=== PATIENT | female | born 2000 | race Caucasian/White ===

== ENCOUNTER 2023-12-01 15:38 | Emergency (ER) | payer MEDICAID, SELFPAY ==
[2023-12-01 15:40] VITALS: BP 91/50; PULSE 61; RESP 16; TEMP 35.9; O2SAT 100; BMI 23.6
--- NOTE | 2023-12-01 16:34 | ED.RN ---
NO OLD EKG
--- NOTE | 2023-12-01 16:35 | CT_ITS ---
EXAMINATION : Head CT w/out contrast HISTORY : syncope, head injury COMPARISON : None. TECHNIQUE : Multiple contiguous axial images were obtained from the skull base to the vertex without intravenous contrast. A radiation dose optimization technique was used for this scan. FINDINGS : The ventricles and sulci are normal in size. There is no evidence for acute intracranial hemorrhage, mass effect, or midline shift. There is no extra-axial fluid collection. There is normal olvera-white differentiation, without CT evidence of acute ischemia or infarct. The skull base and calvarium are unremarkable. The orbits are unremarkable. The paranasal sinuses are clear. The mastoid air cells are well-aerated. The soft tissues are unremarkable. CT/Brain/Head without Contrast IMPRESSION: No acute intracranial abnormality. Electronically Signed: Bismark Helton MD at 17:43 EDT ,
--- NOTE | 2023-12-01 16:36 | EDS_ITS ---
HPI History of Present Illness Chief Complaint: Syncope Detail of Chief Complaint: Syncope Informant: patient Narrative Narrative: Patient presents to the emergency department with syncopal episode today. Patient states that she felt like she needed to go have a bowel movement. She remembers getting hot and sweaty. She was sitting on the toilet next and she remembers she woke up on the floor. Complains of head and neck pain. She has not been ill otherwise. Does not think she is . Denies any chest pain or palpitations. Denied racing heart. Patient has no medical history. Patient not anticoagulated. PFSH PFSH Medical History no medical history Allergy/AdvReac Type Severity Reaction Status Date / Time Penicillins Allergy Intermediate HIVES Verified 12/01/23 15:39 Surgical History no surgical history Social History Smoking Status: Never smoker ROS ROS ED Review of Systems ROS Unobtainable: other Constitutional Constitutional ED: Reports lethargy; Denies chills, fever(s), sweats or weight loss Eyes Eyes: Denies blurry vision, change in vision or diplopia ENT ENT ED: Denies rhinorrhea or sore throat Cardiovascular Cardiovascular: Denies chest pain, orthopnea or racing heartbeat Respiratory/Chest Respiratory/Chest: Denies cough, dyspnea, dyspnea on exertion, orthopnea or sputum Gastrointestinal Gastrointestinal: Denies abdominal pain, diarrhea, nausea or vomiting Genitourinary Genitourinary ED: Denies dysuria, hematuria or urinary frequency Musculoskeletal Musculoskeletal: Reports neck pain; Denies arthralgias, back pain or myalgias Integumentary Denies abscess, Abrasions or rash Neurologic Neurologic: Reports headache(s); Denies weakness Psychiatric Psychiatric: Denies anxiety, depression or suicidal thoughts Endocrine Endocrinology: Denies polydipsia, polyphagia or polyuria Hematologic/Lymphatic Hematologic/Lymphatic: Denies easy bleeding, easy bruising or lymphadenopathy Allergic/Immunologic Allergic/Immunologic ED: Denies mouth swelling, tongue swelling or urticaria EXAM Physical Exam Const Vital Signs: 12/01/23 15:40 12/01/23 16:42 12/01/23 16:43 Temperature 96.7 F L Temperature Source Temporal Pulse Rate 61 Respiratory Rate 16 Respiratory Effort Normal Respiratory Pattern Normal Blood Pressure 91/50 L Blood Pressure Mean 63 Pulse Ox 100 Oxygen Delivery Method Room Air Room Air 12/01/23 16:46 12/01/23 17:00 12/01/23 18:00 Temperature Temperature Source Pulse Rate 56 L 57 L 77 Respiratory Rate 12 17 18 Respiratory Effort Respiratory Pattern Blood Pressure 87/57 L 95/84 H 100/58 L Blood Pressure Mean 67 87 72 Pulse Ox 100 100 100 Oxygen Delivery Method Room Air Room Air Room Air Positive well nourished and well developed General Appearance ED: well developed and NAD HEENT Reports TM's clear and moist mucous membranes HEENT Narrative: Patient has contusion to the left forehead with some faint erythema and superficial abrasion above her left eyebrow. No bony step-offs noted. Pupils equal react light bilaterally. No hemotympanum. normocephalic and atraumatic; Negative for trauma or tenderness Tympanic Membrane ED: Yes TM's clear Eyes PERRL and EOMs intact bilaterally General Eye ED: Negative for pale conjunctiva or scleral icterus Neck no lymphadenopathy, supple and no JVD General: tenderness Chest Wall inspection of chest normal and palpation of chest normal Chest: Negative for tenderness Resp normal respiratory effort and clear to auscultation bilaterally Effort and Inspection: Negative for respiratory distress or pain with movement Auscultation: Negative for rhonchi, wheezes or diminished lung sounds Cardio regular rate, regular rhythm, S1 normal heart sound, S2 normal heart sound and no murmurs Peripheral Pulses: pulses 2+ throughout GI normal to inspection, nondistended, normoactive bowel sounds, soft to palpation, non-tender, non-distended and no masses Back/Spine no CVA tenderness and no thoracic nor lumbar tenderness Extremity normal to inspection General Extremety ED: Negative for edema General Extremity: Negative for edema Neuro oriented x3, CN's II-XII intact bilaterally, no sensory deficits noted and gait normal Sensorium / Orientation: awake, alert, oriented to person, oriented to place and oriented to time Motor Exam: strength 5/5 throughout and strength abnormal Psych mental status grossly normal Skin no rashes or lesions noted and no wounds MDM MDM MDM Narrative Medical decision making narrative: Patient presents to the emergency department with a syncopal episode while trying to have a bowel movement. She does have a head injury and pain in her neck. Clinically I suspect likely this is a defecation type vasovagal episode. We did obtain basic labs CBC with differential that showed a white count 7.7 with hemoglobin 11.9 and platelet count of 188. Chemistries were unremarkable. hCG was negative. CT scan of the brain without contrast was unremarkable and x- rays of the C-spine were negative for fracture. She was given a liter of the same fluid bolus. EKG obtained arrival showed sinus bradycardia with rate of 59 bpm with no acute ST segment changes. This point she clinically she looks well and will discharge to home. Advised on pushing fluids and follow-up with primary care physician within next 3 to 5 days. Lab Data Attestation: I reviewed the patient's lab results. Labs: Laboratory Results - last 24 hr 12/01/23 16:20 WBC 7.7 RBC 3.70 L Hgb 11.9 L Hct 36.9 L MCV 99.7 H MCH 32.2 H MCHC 32.2 RDW Std Deviation 40.2 RDW Coeff of [place] 11.0 L Plt Count 188 MPV 9.0 Immature Gran % (Auto) 0.300 Neut % (Auto) 74.8 H Lymph % (Auto) 16.9 L [place]pton % (Auto) 6.5 Eos % (Auto) 1.0 Baso % (Auto) 0.5 Absolute Neuts (auto) 5.8 Absolute Lymphs (auto) 1.30 Nucleated RBC % 0 Sodium 141 Potassium 3.9 Chloride 109 H Carbon Dioxide 29.0 Anion Gap 3 L BUN 14 Creatinine 0.68 Estim Creat Clear Calc 97.09 Est GFR (MDRD) Af Amer 138 Est GFR (MDRD) Non-Af 114 BUN/Creatinine Ratio 20.6 H Glucose 119 H Calcium 9.1 Serum , Qual NEGATIVE Radiography Diagnostic Testing: Clinical Impression(s) from Imaging Studies Brain CT 12/01/23 16:35 IMPRESSION: No acute intracranial abnormality. Electronically Signed: Bismark Helton MD at 17:43 EDT , Cervical Spine X-Ray 12/01/23 16:55 IMPRESSION: No evidence of acute fracture or spondylolisthesis. Electronically Signed: Bismark Helton MD at 17:45 EDT , EKG Initial EKG: Attestation: I personally reviewed and interpreted this EKG as follows: Comments: Sinus rhythm with rate of 59 bpm with no acute ST segment changes Discharge Plan Triage Chief Complaint: Syncope ED Provider: Jose Angel Broderick Dx/Rx/DC Orders Clinical Impression: Syncope, vasovagal, Concussion, Cervical strain Instructions: ED Concussion, ED Head Injury (Adult), ED Neck Sprain or Strain, ED Fainting, Vagal Reaction Primary Care Provider: Care Physician,No Primary Referrals: Jostin Hand MD [Med Staff - Active Staff] - 3-5 Days NOT,DEFINED [Non-Staff] - Disposition Disposition: Home, Self Care
[2023-12-01 16:44] LABS: Absolute Neutrophil Count 5.8 X10^3/uL (2.0-7.7); Basophil# 0.04 X10^3/uL; Basophil% 0.5 % (0-1); Eosinophil# 0.08 X10^3/uL; Hematocrit 36.9 % (37-47); Hemoglobin 11.9 g/dL (12.0-15.0); Lymphocyte % 16.9 % (19-41); Mean Corp Hgb Conc 32.2 g/dL (32-36); Mean Corpuscular Hgb 32.2 pg (27.0-32.0); Mean Corpuscular Volume 99.7 fL (81-99); Monocyte% 6.5 % (0-10); NRBC Flagged by Analyzer 0 % (0-5); Neutrophil # 5.77 X10^3/uL (2.7-7.7); Neutrophil % 74.8 % (47-70); Platelet Count 188 K/mm3 (150-450); RBC Distribution Width SD 40.2 fl (35.1-43.9); White Blood Count 7.7 K/mm3 (4.4-11.0)
[2023-12-01 16:46] VITALS: BP 87/57; PULSE 56; RESP 12; O2SAT 100
[2023-12-01] MEDS: 0.9% Normal Saline (1000mL) 1,000 ML 1000 ML IV (16:46)
--- NOTE | 2023-12-01 16:55 | RAD_ITS ---
INDICATION: fall, neck pain EXAMINATION/TECHNIQUE: X-RAY - XR Spine Cervical 2 or 3 Views COMPARISON: None. FINDINGS: VERTEBRAE: Preserved vertebral body height. No fracture. No spondylolisthesis. Preservation of the normal cervical lordosis. No significant facet arthropathy. DISCS: Disc spaces are maintained. NECK SOFT TISSUES: No prevertebral soft tissue widening. LUNG APICES: Clear. RAD/Cerv Spine 2 or 3 Views IMPRESSION: No evidence of acute fracture or spondylolisthesis. Electronically Signed: Bismark Helton MD at 17:45 EDT ,
[2023-12-01 16:58] LABS: Internal QC Validated? YES +Cl - CLEAR BKGD; Pregnancy, Serum, hCG Quali. NEGATIVE Negative
[2023-12-01 17:00] VITALS: BP 95/84; PULSE 57; RESP 17; O2SAT 100
[2023-12-01 17:02] LABS: Anion Gap 3 (5-15); BUN 14 mg/dL (7-18); BUN/Creat Ratio 20.6 RATIO (10-20); Calcium,Total 9.1 mg/dL (8.5-10.1); Chloride 109 mmol/L (98-107); Creatinine, Serum 0.68 mg/dL (0.55-1.02); EST Glomerular Filtration Rate 114 mL/min (>60); Est Glom Filt Rate - Afr Amer 138 mL/min (>60); Estimated Creatinine Clearance 97.09 ml/min; Glucose 119 mg/dL (74-106); Potassium 3.9 mmol/L (3.5-5.1); Sodium Level 141 mmol/L (136-145)
[2023-12-01 18:00] VITALS: BP 100/58; PULSE 77; RESP 18; O2SAT 100
--- NOTE | 2023-12-01 18:13 | ED.RN ---
NO OLD EKG
[2023-12-01] MEDS: Ibuprofen 600 MG Tablet PO (18:35)
[2023-12-01 18:40] VITALS: BP 103/67; PULSE 65; RESP 17; TEMP 36.4; O2SAT 100
== END 2023-12-01 18:42 | disposition home or self-care (01) ==
PROVIDERS: Emergency Provider Emergency Medicine; Visit Provider Emergency Medicine
DX: R55 Syncope and collapse (principal); S06.0X0A Concussion without loss of consciousness, initial encounter; S16.1XXA Strain of muscle, fascia and tendon at neck level, initial encounter; X58.XXXA Exposure to other specified factors, initial encounter
CPT/HCPCS: 70450; 72040; 80048; 84703; 85025; 93005; 96360; 96361; 99284; J7030; A4216